=== PATIENT | female | born 1990 | race Caucasian/White ===

== ENCOUNTER 2018-05-14 21:36 | Emergency (ER) | payer SELFPAY ==
[~2018-05-14] VITALS: Ht 157.5 cm; Wt 59.0 kg
--- NOTE | 2018-05-15 00:21 | Diagnostic Imaging Report ---
EXAM: US TRANSVAGINAL-HOPD INDICATION: Left pelvic pain COMPARISON: None TECHNIQUE: Grayscale transverse and sagittal transvaginal images were obtained of the pelvis. Transvaginal images were necessary to better assess anatomic detail. The ovaries were examined with grayscale, color Doppler, and spectral waveform analysis. FINDINGS: [phone] Uterus Orientation: Retroverted Size: 7.2 x 4.9 x 6.0 cm, normal There is an intrauterine gestational sac with yolk sac. No pole. No subchorionic hemorrhage. Right ovary: Size: 3.9 x 2.9 x 1.3 cm Mass/Cyst: 1.3 x 1.0 x 1.2 cm thick-walled cyst, presumed corpus luteum Vascularity: Normal venous and arterial color flow and waveforms. Left ovary: Size: 2.6 x 1.3 x 2.7 cm Mass/Cyst: None Vascularity: Normal venous and arterial color flow and waveforms. Adnexa: Thick-walled right adnexal lesion felt to be ovarian. Cul-de-sac: No free fluid IMPRESSION: 1. Intrauterine of uncertain viability. Recommend 1-2 week follow up. 2. Normal appearing ovaries with right corpus luteum. No evidence of torsion. Signed by: Dr Meredith Wiley MD on 05/15/2018 12:18 AM
== END 2018-05-15 00:52 | disposition home or self-care (01) ==
LOC: FSED 21:36
DX: R10.32 Left lower quadrant pain (principal); Z33.1 Pregnant state, incidental
CPT/HCPCS: 76830; 81003; 81025; 99283